=== PATIENT | female | born 1965 | race Caucasian/White ===

== ENCOUNTER 2017-07-28 19:29 | Emergency (ER) | payer OTHER ==
[~2017-07-28] VITALS: Ht 157.5 cm; Wt 64.4 kg
[2017-07-28 19:57] VITALS: BP 139/77
== END 2017-07-28 21:42 | disposition home or self-care (01) ==
LOC: EME → EDBD 19:29 → EME 21:42
PROC: 0HQ1XZZ Repair Face Skin, External Approach (ICD-10-PCS; principal; 2017-07-28)
DX: S01.81XA Laceration without foreign body of other part of head, initial encounter (principal); S80.212A Abrasion, left knee, initial encounter; V03.00XA Pedestrian on foot injured in collision with car, pick-up truck or van in nontraffic accident, initial encounter; Y92.480 Sidewalk as the place of occurrence of the external cause; R56.9 Unspecified convulsions
CPT/HCPCS: 70160; 70450; 99281; 99283